=== PATIENT | male | born 1990 | race Caucasian/White ===

== ENCOUNTER 2017-09-09 12:16 | Emergency (ER) | payer OTHER, BC, SELFPAY ==
[2017-09-09] MEDS: IBUPROFEN 400 MG TAB PO (13:18)
== END 2017-09-09 14:12 | disposition home or self-care (01) ==
LOC: M ED 12:16
DX: S83.004A Unspecified dislocation of right patella, initial encounter (principal); X50.9XXA Other and unspecified overexertion or strenuous movements or postures, initial encounter; Y92.89 Other specified places as the place of occurrence of the external cause
CPT/HCPCS: 73564

== ENCOUNTER → 2018-11-28 | Outpatient (CLI) | payer BC, SELFPAY ==
[~2018-11-28] MED LIST: PERCOCET PO
[2018-11-28 13:35] LABS: BASO # 0.1 10^3/uL (0.0-0.2); BASO % 0.9 % (0.0-1.0); EOS # 0.1 10^3/uL (0.0-0.50); EOS % 1.6 % (0.0-3.0); HEMOGLOBIN 15.9 g/dl (13.5-17.5); LYMPH # 1.8 10^3/uL (1.5-6.5); LYMPH % 31.6 % (24.0-44.0); MEAN CORPUSCULAR HEMOGLOBIN 31.7 pg (27.0-33.0); MEAN CORPUSCULAR HGB CONC 36.1 g/dl (32.0-36.5); MEAN CORPUSCULAR VOLUME 87.8 fl (80.0-96.0); MONO # 0.4 10^3/uL (0.0-0.8); MONO % 7.2 % (0.0-5.0); NEUTROPHILS # 3.2 10^3/uL (1.8-7.7); NEUTROPHILS % 58.5 % (36.0-66.0); PLATELET COUNT, AUTOMATED 202 10^3/uL (150-450); RED BLOOD COUNT 5.01 10^6/uL (4.30-6.10); WHITE BLOOD COUNT 5.5 10^3/uL (4.0-10.0)
== END ==
LOC: M LAB 12:33
PROVIDERS: ATTEND Plastic Surgery Surgery of the Hand
DX: Z01.818 Encounter for other preprocedural examination (principal); L90.5 Scar conditions and fibrosis of skin; L81.8 Other specified disorders of pigmentation

== ENCOUNTER → 2022-08-24 | Outpatient (REF) | payer OTHER ==
[2022-08-24 11:36] LABS: SEMEN APPEARANCE OPAQUE (OPAQUE); SEMEN VISCOSITY LIQUID (LIQUID); SEMEN VOLUME 2.8 ml (2.0-5.0); SPERM CONCENTRATION 20.6 M/ml (>=15.0); WBC CONCENTRATION >1 M/ml (<=1 M/ml)
== END ==
LOC: M SMT 10:57
PROVIDERS: ATTEND Physician Assistant
DX: N46.9 Male infertility, unspecified (principal)

== ENCOUNTER → 2022-08-31 | Outpatient (CLI) | payer OTHER | LOC: M RAD 08:30 | PROVIDERS: ATTEND Physician Assistant | DX: N46.9 Male infertility, unspecified (principal) ==

== ENCOUNTER 2024-10-27 16:20 | Emergency (ER) | payer OTHER ==
[~2024-10-27] VITALS: Ht 167.6 cm; Wt 86.4 kg
[2024-10-27 17:44] LABS: BASO % 0.5 % (0.0-1.0); EOS # 0.1 10^3/uL (0.0-0.5); EOS % 0.8 % (0.0-3.0); HEMATOCRIT 45.4 % (42.0-52.0); HEMOGLOBIN 16.6 g/dl (13.5-17.5); LYMPH % 25.8 % (24.0-44.0); MEAN CORPUSCULAR HEMOGLOBIN 31.1 pg (27.0-33.0); MEAN CORPUSCULAR VOLUME 85.2 fl (80.0-96.0); MONO # 0.6 10^3/uL (0.0-0.8); MONO % 7.1 % (2.0-8.0); NEUTROPHILS # 5.1 10^3/uL (1.5-8.5); NEUTROPHILS % 65.4 % (36.0-66.0); PLATELET COUNT, AUTOMATED 223 10^3/uL (150-450); RED BLOOD COUNT 5.33 10^6/uL (4.30-6.10); WHITE BLOOD COUNT 7.8 10^3/uL (4.0-10.0)
[2024-10-27 17:51] LABS: CK-MB VALUE MASS < 1.0 NG/ML (<3.6); LIPASE 56 U/L (12-53)
[2024-10-27 17:53] LABS: ALBUMIN 4.6 G/DL (3.2-5.2); ALKALINE PHOSPHATASE 77 U/L (40-129); ALT/SGPT 65 U/L (7.0-40); AST/SGOT 29 U/L (<34); BILIRUBIN,DIRECT 0.3 MG/DL (<0.4); BLOOD UREA NITROGEN 19 MG/DL (9-23); CALCIUM LEVEL 9.6 MG/DL (8.5-10.1); CARBON DIOXIDE LEVEL 20 MMOL/L (20-31); CHLORIDE LEVEL 104 MMOL/L (98-107); CPK CREATINE PHOSPHOKINASE 157 U/L (46-171); CREATININE FOR GFR 0.81 MG/DL (0.70-1.30); GLOMERULAR FILTRATION RATE > 90.0 (>60); GLUCOSE, FASTING 82 MG/DL (60-100); MB/CK RELATIVE INDEX 0.63 (< OR =4); POTASSIUM SERUM 3.5 MMOL/L (3.5-5.1); SODIUM LEVEL 138 MMOL/L (136-145); TOTAL PROTEIN 7.5 G/DL (5.7-8.2)
[2024-10-27 17:59] LABS: MEAN CORPUSCULAR HGB CONC 36.6 g/dl (32.0-36.5)
[2024-10-27] MEDS ORDERED: ISOVUE-370 76% 100ML VIAL As Ordered ONE (18:04)
[2024-10-27 18:29] LABS: CK-MB VALUE MASS < 1.0 NG/ML (<3.6)
[2024-10-27 18:32] LABS: CPK CREATINE PHOSPHOKINASE 146 U/L (46-171); MB/CK RELATIVE INDEX 0.68 (< OR =4)
[2024-10-27 20:40] VITALS: BP 131/85; TEMP 97.6; O2SAT 97
== END 2024-10-27 20:43 | disposition home or self-care (01) ==
LOC: M ED 16:20
DX: R07.9 Chest pain, unspecified (principal); R91.1 Solitary pulmonary nodule; Z87.820 Personal history of traumatic brain injury; G89.29 Other chronic pain; M54.9 Dorsalgia, unspecified
CPT/HCPCS: 36415; 71045; 71275; 80048; 80076; 82550; 82553; 83690; 84484; 85025; 93005; 93041; 94760; 99285; Q9967

== ENCOUNTER 2025-04-12 03:45 | Observation (INO) | payer OTHER ==
[~2025-04-12] VITALS: Ht 167.6 cm; Wt 95.7 kg
[2025-04-12] MEDS ORDERED: PRIL20TA2 PO (03:53)
[2025-04-12] MEDS ORDERED: BACL10TA2 PO (03:53)
[2025-04-12 04:34] LABS: BASO # 0.0 10^3/uL (0.0-0.2); BASO % 0.3 % (0.0-1.0); EOS # 0.1 10^3/uL (0.0-0.5); EOS % 1.0 % (0.0-3.0); LYMPH # 1.4 10^3/uL (1.5-5.0); LYMPH % 11.1 % (24.0-44.0); MONO # 1.1 10^3/uL (0.0-0.8); MONO % 8.9 % (2.0-8.0); NEUTROPHILS # 10.1 10^3/uL (1.5-8.5); NEUTROPHILS % 78.2 % (36.0-66.0); PLATELET COUNT, AUTOMATED 176 10^3/uL (150-450)
[2025-04-12 04:59] LABS: KETONE, URINE AUTO RFX NEGATIVE (NEGATIVE); LEUKOCYTE ESTERASE UR AUTO RFX NEGATIVE (NEGATIVE); MUCUS, URINE RFX SMALL (NEGATIVE); NITRITE, URINE AUTO RFX NEGATIVE (NEGATIVE); RBC, URINE AUTO RFX 0 /HPF (0-3); SQUAM EPITHELIAL CELL UR AURFX 0 /HPF (0-6); WBC, URINE AUTO RFX 0 /HPF (0-3)
[2025-04-12 05:06] LABS: ALT/SGPT 33 U/L (7.0-40); AST/SGOT 23 U/L (<34); CALCIUM LEVEL 9.0 MG/DL (8.5-10.1); CARBON DIOXIDE LEVEL 25 MMOL/L (20-31); CHLORIDE LEVEL 106 MMOL/L (98-107); CREATININE FOR GFR 0.93 MG/DL (0.70-1.30); GLOMERULAR FILTRATION RATE > 90.0 (>60); POTASSIUM SERUM 4.2 MMOL/L (3.5-5.1); SODIUM LEVEL 139 MMOL/L (136-145)
[2025-04-12] MEDS: ONDANSETRON 4MG 2ML VIAL IV ONE (06:30)
[2025-04-12] MEDS: KETOROLAC 30 MG/ML 1 ML VIAL IV ONE (06:31)
[2025-04-12] MEDS ORDERED: ISOVUE-370 76% 100 ML VIAL As Ordered ONE (09:59)
[2025-04-12] MEDS: metroNIDAZOLE 500 MG in IV 1 EA IV ONE (10:40)
[2025-04-12] MEDS: MORPHINE 4 MG/ML 1 ML VIAL IV PRN ×2 (10:50→14:54)
[2025-04-12] MEDS: CIPROFLOXACIN 400 MG in IV 1 EA IV ONE (10:51)
[2025-04-12] MEDS ORDERED: MORPHINE 4 MG/ML 1 ML VIAL IV PRN (13:35)
[2025-04-12] MEDS ORDERED: HOME MED LIST COMPLETE! XX SCH (14:15)
[2025-04-12 15:01] VITALS: BP 148/86; TEMP 98.3; O2SAT 98
[2025-04-12] MEDS: KCL 20MEQ IN D5/0.45NS 1000ML 1,000 ML IV SCH (16:17)
[2025-04-12] MEDS: KETOROLAC 30 MG/ML 1 ML VIAL IV PRN (16:18)
[2025-04-12] MEDS: metroNIDAZOLE 500 MG in IV 1 EA IV SCH (18:26)
[2025-04-12 19:51] VITALS: BP 126/83; TEMP 98.2; O2SAT 95
[2025-04-12] MEDS: ACETAMINOPHEN 500 MG TAB PO PRN (20:03)
[2025-04-12] MEDS: CIPROFLOXACIN 400 MG in IV 1 EA IV SCH (22:24)
[2025-04-13 03:39] VITALS: BP 119/73; TEMP 98.1; O2SAT 97
[2025-04-13 09:01] LABS: PLATELET COUNT, AUTOMATED 163 10^3/uL (150-450)
[2025-04-13] MEDS: BACLOFEN 10 MG TAB PO SCH (09:19)
[2025-04-13] MEDS: OMEPRAZOLE 20MG CAP PO SCH (09:19)
[2025-04-13] MEDS: NS (Normal Saline) 0.9% 1,000 ML IV SCH (09:20)
[2025-04-13] MEDS: ENOXAPARIN 40 MG/0.4 ML SYRINGE (J1650 PER 10MG) SC SCH (09:20)
[2025-04-13 09:25] LABS: CALCIUM LEVEL 8.5 MG/DL (8.5-10.1); CARBON DIOXIDE LEVEL 24 MMOL/L (20-31); CHLORIDE LEVEL 106 MMOL/L (98-107); CREATININE FOR GFR 0.76 MG/DL (0.70-1.30); GLOMERULAR FILTRATION RATE > 90.0 (>60); MAGNESIUM LEVEL 1.8 MG/DL (1.8-2.4); POTASSIUM SERUM 4.1 MMOL/L (3.5-5.1); SODIUM LEVEL 138 MMOL/L (136-145)
[2025-04-13] MEDS: DOCUSATE SODIUM 100 MG CAPSULE PO SCH (09:44)
[2025-04-13 09:59] LABS: C REACTIVE PROTEIN QUANTITATIV 13.75 MG/DL (<1.0)
[2025-04-13 12:00] VITALS: TEMP 98.3; O2SAT 97
[2025-04-13] MEDS ORDERED: METR-265 PO (15:02)
[2025-04-13] MEDS ORDERED: SENN18TA PO (15:02)
[2025-04-13] MEDS ORDERED: COLA100C5 PO (15:02)
[2025-04-13] MEDS ORDERED: CIPR250T3 PO (15:02)
[2025-04-13] MEDS ORDERED: APAP325T4 PO (15:02)
[2025-04-13] MEDS ORDERED: SENNA 8.6 MG TAB PO SCH (21:00)
== END 2025-04-13 16:56 | disposition home or self-care (01) ==
LOC: M ED 03:45 → M ED INP 03:46 → M MS4PR 14:42
PROVIDERS: ADMIT Family Medicine; ATTEND Family Medicine
DX: K57.32 Diverticulitis of large intestine without perforation or abscess without bleeding (principal); K58.8 Other irritable bowel syndrome; K59.00 Constipation, unspecified; Z79.2 Long term (current) use of antibiotics; Z79.899 Other long term (current) drug therapy
CPT/HCPCS: 36415; 74177; 80048; 80076; 81001; 82150; 83690; 83735; 85025; 85027; 86140; 96361; 96365; 96366; 96367; 96372; 96375; 96376; 99284; G0378; J0744; J1650; J1836; J1885; J2405; Q9967

== ENCOUNTER → 2025-06-30 | Outpatient (CLI) | payer OTHER ==
[~2025-06-30] MED LIST changes: +APAP325T4 PO; +BACL10TA2 PO; +CIPR250T3 PO; +COLA100C5 PO; +METR-265 PO; +PRIL20TA2 PO; +SENN18TA PO
== END ==
LOC: M RAD 15:51
PROVIDERS: ATTEND Physician Assistant
DX: J18.9 Pneumonia, unspecified organism (principal)